=== PATIENT | female | born 1930 | race Caucasian/White ===

== ENCOUNTER 2016-11-21 08:54 | Emergency (ER) | payer MEDICARE, MEDICAID ==
[~2016-11-21] VITALS: Ht 162.6 cm; Wt 73.0 kg
[~2016-11-21 08:54] MED LIST: ESOM40CA PO; EZET10TA PO; IBUP200C5 PO; LEVO75TA11 PO
[2016-11-21 08:57] VITALS: BP 129/53
== END 2016-11-21 10:14 | disposition home or self-care (01) ==
LOC: ER 08:56
DX: S90.111A Contusion of right great toe without damage to nail, initial encounter (principal); M20.11 Hallux valgus (acquired), right foot; G89.29 Other chronic pain; K21.9 Gastro-esophageal reflux disease without esophagitis; M19.90 Unspecified osteoarthritis, unspecified site; W22.8XXA Striking against or struck by other objects, initial encounter; Y92.89 Other specified places as the place of occurrence of the external cause; Y93.89 Activity, other specified; Y99.8 Other external cause status
CPT/HCPCS: 73660; 99284; A4606; Z7610

== ENCOUNTER 2016-12-02 09:30 | Outpatient (CLI) | payer MEDICARE, MEDICAID | END 2016-12-02 23:59 | disposition home or self-care (01) | LOC: WOU 09:30 | PROVIDERS: ATTEND Podiatrist Foot & Ankle Surgery | DX: S92.414A Nondisplaced fracture of proximal phalanx of right great toe, initial encounter for closed fracture (principal); W20.8XXA Other cause of strike by thrown, projected or falling object, initial encounter; Y92.9 Unspecified place or not applicable; Z87.891 Personal history of nicotine dependence; M17.0 Bilateral primary osteoarthritis of knee | CPT/HCPCS: G0463 ==

== ENCOUNTER 2016-12-12 08:07 | Outpatient (CLI) | payer MEDICARE, MEDICAID | END 2016-12-12 23:59 | disposition home or self-care (01) | LOC: RAD 08:07 | PROVIDERS: ATTEND Podiatrist Foot & Ankle Surgery | DX: M19.071 Primary osteoarthritis, right ankle and foot (principal); M85.88 Other specified disorders of bone density and structure, other site; M21.071 Valgus deformity, not elsewhere classified, right ankle; M25.474 Effusion, right foot | CPT/HCPCS: 73630-TC ==

== ENCOUNTER 2016-12-16 08:35 | Outpatient (CLI) | payer MEDICARE, MEDICAID | END 2016-12-16 23:59 | disposition home or self-care (01) | LOC: WOU 08:35 | PROVIDERS: ATTEND Podiatrist Foot & Ankle Surgery | DX: S92.411D Displaced fracture of proximal phalanx of right great toe, subsequent encounter for fracture with routine healing (principal); W20.8XXD Other cause of strike by thrown, projected or falling object, subsequent encounter; M79.671 Pain in right foot | CPT/HCPCS: G0463 ==

== ENCOUNTER 2017-03-14 07:54 | Inpatient (IN) | payer MEDICARE, MEDICAID ==
[~2017-03-14] VITALS: Ht 152.4 cm; Wt 73.5 kg
[~2017-03-14 07:54] MED LIST changes: -EZET10TA PO; +EZET10TA14 PO
--- NOTE | 2017-03-14 08:00 | NUR ---
COUGH CONGESTION AND HEADACHE. PLACED ON MONITOR.AWAITING MD ORDER
[2017-03-14] MEDS ORDERED: IV NS 0.9% 1,000 ML BAG IV ONE (09:00)
[2017-03-14 09:35] LABS: BASOPHILS # (AUTO) 0.5 /CMM (0.0-0.2); BASOPHILS % (AUTO) 4.2 % (0.0-2.0); EOSINOPHILS # (AUTO) 0.1 /CMM (0.0-0.7); EOSINOPHILS % (AUTO) 0.6 % (0.0-6.0); HEMATOCRIT 32 % (33-45); LYMPHOCYTES # (AUTO) 0.6 /CMM (0.8-4.8); LYMPHOCYTES % (AUTO) 5.2 % (20.0-44.0); MEAN CORPUSCULAR HEMOGLOBIN 27 PG (26.0-33.0); MEAN CORPUSCULAR HGB CONC 34 g/dl (31.0-36.0); MEAN CORPUSCULAR VOLUME 78 fL (82-100); MONOCYTES # (AUTO) 1.7 /CMM (0.1-1.30); MONOCYTES % (AUTO) 14.1 % (2.0-12.0); NEUTROPHILS # (AUTO) 9.3 /CMM (1.8-8.9); NEUTROPHILS % (AUTO) 75.9 % (43.0-81.0); PLATELET COUNT (AUTO) 178 /CMM (150-450); RDW COEFFICIENT OF VARIATION 13.9 (11.5-15.0); RED BLOOD CELL COUNT(AUTO) 4.14 MIL/uL (4.0-5.2); WHITE BLOOD COUNT (AUTO) 12.2 K/uL (4.3-11.0)
[2017-03-14 09:43] LABS: CALCIUM, SERUM 8.9 mg/dL (8.5-10.1); CARBON DIOXIDE 31 mmol/L (21-32); CHLORIDE 89 mmol/L (98-107); CREATININE 0.8 mg/dL (0.6-1.3); GLUCOSE 94 mg/dL (74-106); POTASSIUM 3.2 mmol/L (3.5-5.1); SODIUM SERUM 127 mmol/L (136-145); UREA NITROGEN, BLOOD 27 mg/dL (7-18)
--- NOTE | 2017-03-14 09:46 | NUR ---
FIRE EQUIPMENT INSPECTOR HELPER AT BEDSIDE
[2017-03-14 09:51] LABS: TROPONIN I 0.064 ng/mL (0.00-0.056)
[2017-03-14 09:56] LABS: ALANINE AMINOTRANSFERASE 36 U/L (12-78); ALBUMIN 3.3 g/dL (3.4-5.0); ALKALINE PHOSPHATASE 97 U/L (46-116); ASPARTATE AMINOTRANSFERASE 29 U/L (15-37); B-TYPE NATRIURETIC PEPTIDE 449 PG/ML (0-125); BILIRUBIN,DIRECT 0.2 mg/dL (0.0-0.2); BILIRUBIN,TOTAL 0.6 mg/dL (0.2-1.0); TOTAL PROTEIN, SERUM 7.3 g/dL (6.4-8.2)
[2017-03-14] MEDS ORDERED: ASPI-1152 PO (10:48)
[2017-03-14] MEDS ORDERED: FLUT16SP NS (10:48)
[2017-03-14] MEDS ORDERED: ROSU10TA PO (10:48)
[2017-03-14] MEDS ORDERED: BACL10TA PO (10:48)
--- NOTE | 2017-03-14 10:57 | NUR ---
PREETI PEREZ [facility] .
[2017-03-14] MEDS ORDERED: ASPIRIN 325 MG TABLET PO ONE (11:00)
[2017-03-14] MEDS ORDERED: OSELTAMIVIR PHOSPHATE 75 MG CAPSULE PO ONE (11:00)
[2017-03-14] MEDS ORDERED: OSELTAMIVIR PHOSPHATE 75 MG CAPSULE ONE (11:15)
[2017-03-14] MEDS ORDERED: ASPIRIN 325 MG TABLET ONE (11:15)
--- NOTE | 2017-03-14 11:52 | NUR ---
PAGED ASSISTANT QUALITY MANAGER PANEL MATTY HAMILTON.
--- NOTE | 2017-03-14 11:57 | NUR ---
PATIENT ASSIGNED TO TELE 327
--- NOTE | 2017-03-14 12:01 | NUR ---
GAVE REPORT TO CLAUDIA PALMA TELE ROOM 327-1 DX FLU MATTY HAMILTON ADMITTING
--- NOTE | 2017-03-14 12:02 | NUR ---
RECEIVED REPORT FROM MINERVA POTTER
--- NOTE | 2017-03-14 12:15 | NUR ---
REPAGED MATTY HAMILTON.
--- NOTE | 2017-03-14 13:20 | NUR ---
PATIENT ARRIVED TO UNIT VIA A GURNEY AND PLACED IN ROOM 327-2
--- NOTE | 2017-03-14 13:25 | NUR ---
vital signs on admission are stable. BP 141/68, HR 72, RR 18, TEMP 98.3, OXYGEN ON ROOM AIR 95%
--- NOTE | 2017-03-14 13:40 | NUR ---
DR HAMILTON AT BEDSIDE. ORDERS RECEIVED
[2017-03-14] MEDS ORDERED: IBUPROFEN 600 MG TABLET PO PRN (14:00)
[2017-03-14] MEDS ORDERED: POTASSIUM CHLORIDE 20 MEQ TAB.PRT.SR PO ONE (14:00)
[2017-03-14] MEDS ORDERED: ASPIRIN/ACETAMINOPHEN/CAFFEINE 1 EACH TABLET PO PRN (14:00)
[2017-03-14] MEDS ORDERED: IV NS 0.9% 1,000 ML BAG IV PRN (14:00)
[2017-03-14] MEDS: methylPREDNISolone SOD SUCC 40 MG/ML VIAL IV SCH ×2 (14:15→16:54)
--- NOTE | 2017-03-14 15:10 | NUR ---
RT AT BEDSIDE
[2017-03-14] MEDS: IPRATROPIUM NEB FS 0.5 MG/2.5 ML AMPUL.NEB NEB SCH ×3 (15:24→23:30)
[2017-03-14] MEDS: ALBUTEROL FS 2.5 MG/0.5 ML VIAL.NEB NEB SCH ×3 (15:24→23:30)
--- NOTE | 2017-03-14 15:40 | NUR ---
RN ADMITTING NOTES PATIENT ADMITTED TO UNIT FOR INFLUENZA A. PATIENT IS ALERT AND ORIENTED TO NAME, PLACE AND TIME. NO SIGNS AND SYMPTOMS OF DISTRESS. HEADACHE PAIN 10/24. IV SITE IS INTACT AND PATENT, STARTED PATIENT ON NS 80ML/HR PER MD ORDER. PLACED ON DVT PUMP. LOW POTASSIUM REPLACED BY 40mEq KCL. BED IN LOW POSITION, LOCKED AND TWO SIDE RAILS ARE UP. CALL LIGHT WITHIN REACH FOR SAFETY. OVERBED TABLE WITHIN REACH. WILL CONTINUE TO ASSESS AND MONITOR PATIENT THROUGH OUT MY SHIFT
[2017-03-14 16:13] VITALS: BP 141/68
[2017-03-14] MEDS ORDERED: Z GUARD REMEDY 2 OZ OINT TP PRN (17:00)
[2017-03-14] MEDS ORDERED: MAG HYDROX/AL HYDROX/SIMETH 30 ML UDC PO PRN (17:00)
[2017-03-14] MEDS ORDERED: ONDANSETRON HCL/PF 4 MG/2 ML VIAL IVP PRN (17:00)
[2017-03-14] MEDS ORDERED: ACETAMINOPHEN 325 MG TABLET PO PRN (17:00)
[2017-03-14] MEDS: OSELTAMIVIR PHOSPHATE 75 MG CAPSULE PO SCH (17:19)
[2017-03-14] MEDS: BACLOFEN (10 MG) 10 MG TABLET PO SCH (17:20)
[2017-03-14] MEDS: ENOXAPARIN SODIUM 40 MG/0.4 ML DISP.SYRIN SQ SCH (17:21)
--- NOTE | 2017-03-14 18:30 | NUR ---
URINE COLLECTED. LAB NOTIFIED
--- NOTE | 2017-03-14 19:21 | NUR ---
RN CLOSING NOTES PATIENT IS ALERT AND ORIENTED TO NAME, PLACE AND TIME. NO SIGNS AND SYMPTOMS OF DISTRESS. IV SITE IS INTACT AND PATENT. LOW POTASSIUM REPLACED BY 40mEq KCL. BED IN LOW POSITION, LOCKED AND TWO SIDE RAILS ARE UP. CALL LIGHT WITHIN REACH FOR SAFETY. OVERBED TABLE WITHIN REACH. WILL ENDORSE TO THREE DIMENSIONAL MAP MODELER NURSE
[2017-03-14 20:00] VITALS: BP 139/49
--- NOTE | 2017-03-14 20:00 | NUR ---
RN NOTES RECEIVED PATIENT IN BED, ALERT AND ORIENTED X3, CALM, ABLE TO VERBALIZE NEEDS, TOLERATING ROOM AIR, SPO2 96%, DENIES ANY PAIN, NO HEADACHE, RECEIVED EXCEDRIN FROM PREVIOUS SHIFT, LEFT FA PERIPHERAL LINE IS PATENT AND INFUSING WELL. KEPT SAFE AND COMFORTABLE, CALL LIGHT WITHIN REACH.
[2017-03-14 21:21] LABS: APPEARANCE,URINE CLEAR (CLEAR); BILIRUBIN,URINE NEGATIVE (NEGATIVE); BLOOD, URINE NEGATIVE Ery/uL (NEGATIVE); COLOR,URINE YELLOW (YELLOW); KETONES,URINE NEGATIVE (NEGATIVE); LEUKOCYTE ESTERASE ,URINE NEGATIVE (NEGATIVE); NITRITE, URINE NEGATIVE (NEGATIVE); PROTEIN,URINE NEGATIVE (NEGATIVE); UGLUCOSE NEGATIVE (NEGATIVE); UROBILINOGEN,URINE 0.2 EU/dL (0.2)
[2017-03-14] MEDS: ATORVASTATIN 40 MG TABLET PO SCH (22:13)
[2017-03-14] MEDS: Z GUARD REMEDY 2 OZ OINT TP SCH (22:15)
[2017-03-15] VITALS: BP 125/59
[2017-03-15] MEDS: IV NS 0.9% 1,000 ML IV PRN ×2 (01:49→17:46)
[2017-03-15] MEDS: IPRATROPIUM NEB FS 0.5 MG/2.5 ML AMPUL.NEB NEB SCH ×6 (03:44→23:27)
[2017-03-15] MEDS: ALBUTEROL FS 2.5 MG/0.5 ML VIAL.NEB NEB SCH ×6 (03:44→23:28)
[2017-03-15 04:00] VITALS: BP 133/80
--- NOTE | 2017-03-15 06:35 | NUR ---
RN NOTES PATIENT IS ALERT AND AWAKE, NO SOB, NO COMPLAIN OF HEADACHE, SPO2 AT ROOM AIR REMAINED AT 96%, NO ADVERSE CHANGE OF CONDITION DURING SHIFT, ISOLATION SECONDARY TO FLU IN PLACE. ALL NEEDS ATTENDED, SLEPT FOR 5 HOURS, CALL LIGHT WITHIN REACH.
[2017-03-15 06:56] VITALS: BP 139/75
--- NOTE | 2017-03-15 07:22 | NUR ---
RN OPEN NOTES RECEIVED REPORT FROM STEAMING MACHINE OPERATOR NURSE. PATIENT IS IN BED, ALERT AND ORIENTED TO NAME, PLACE AND TIME. NO SIGNS AND SYMPTOMS OF DISTRESS. DENIED PAIN. BED IN LOW POSITION, LOCKED AND TWO SIDE RAILS ARE UP. CALL LIGHT WITHIN REACH FOR SAFETY. WILL CONTINUE TO MONITOR AND ASSESS PATIENT THROUGH OUT MY SHIFT
--- NOTE | 2017-03-15 08:15 | NUR ---
PHARMACY NOTIFIED TO DELIVER Z GUARD AND FLONASE
[2017-03-15] MEDS: LEVOTHYROXINE SODIUM 75 MCG TABLET PO SCH (08:26)
[2017-03-15] MEDS: ASPIRIN EC 81 MG TABLET.DR PO SCH (08:26)
[2017-03-15] MEDS: OSELTAMIVIR PHOSPHATE 75 MG CAPSULE PO SCH ×2 (08:26→17:46)
[2017-03-15] MEDS: methylPREDNISolone SOD SUCC 40 MG/ML VIAL IV SCH ×3 (08:27→17:46)
[2017-03-15] MEDS ORDERED: ASPIRIN EC 81 MG TABLET.DR PO SCH (09:00)
[2017-03-15] MEDS: FLUTICASONE PROPIONATE 16 GM BOTTLE NS SCH (09:00)
[2017-03-15] MEDS: Z GUARD REMEDY 2 OZ OINT TP SCH ×2 (09:00→21:04)
[2017-03-15 09:09] LABS: BASOPHILS % (AUTO) 0.2 % (0.0-2.0); EOSINOPHILS % (AUTO) 0.5 % (0.0-6.0); HEMATOCRIT 31 % (33-45); HEMOGLOBIN 10.3 g/dL (11.5-14.8); LYMPHOCYTES # (AUTO) 0.4 /CMM (0.8-4.8); LYMPHOCYTES % (AUTO) 6.9 % (20.0-44.0); MEAN CORPUSCULAR HEMOGLOBIN 27 PG (26.0-33.0); MEAN CORPUSCULAR HGB CONC 34 g/dl (31.0-36.0); MEAN CORPUSCULAR VOLUME 79 fL (82-100); MONOCYTES # (AUTO) 1.2 /CMM (0.1-1.30); MONOCYTES % (AUTO) 20.6 % (2.0-12.0); NEUTROPHILS # (AUTO) 4.3 /CMM (1.8-8.9); NEUTROPHILS % (AUTO) 71.8 % (43.0-81.0); PLATELET COUNT (AUTO) 157 /CMM (150-450); RED BLOOD CELL COUNT(AUTO) 3.84 MIL/uL (4.0-5.2); WHITE BLOOD COUNT (AUTO) 5.9 K/uL (4.3-11.0)
[2017-03-15 09:40] LABS: ALANINE AMINOTRANSFERASE 40 U/L (12-78); ALBUMIN 2.8 g/dL (3.4-5.0); ALKALINE PHOSPHATASE 90 U/L (46-116); ASPARTATE AMINOTRANSFERASE 32 U/L (15-37); BILIRUBIN,TOTAL 0.4 mg/dL (0.2-1.0); CALCIUM, SERUM 8.7 mg/dL (8.5-10.1); CARBON DIOXIDE 29 mmol/L (21-32); CHLORIDE 100 mmol/L (98-107); CREATININE 0.7 mg/dL (0.6-1.3); GLUCOSE 120 mg/dL (74-106); MAGNESIUM 1.7 mg/dL (1.8-2.4); PHOSPHORUS 3.3 mg/dL (2.5-4.9); POTASSIUM 3.3 mmol/L (3.5-5.1); SODIUM SERUM 137 mmol/L (136-145); TOTAL PROTEIN, SERUM 6.2 g/dL (6.4-8.2); UREA NITROGEN, BLOOD 16 mg/dL (7-18)
[2017-03-15 10:58] LABS: CHOLESTEROL 131 mg/dL (<200); HDL CHOLESTEROL 92 mg/dL (40-60); LDL 42 mg/dL (0-99); THYROID STIMULATING HORMONE 0.201 uIU/mL (0.358-3.74); TRIGLYCERIDES 19 mg/dL (30-150)
[2017-03-15 11:13] LABS: LYMPHOCYTES % (MANUAL) 4 % (16-48); MONOCYTES % (MANUAL) 11 % (0-11.0); NEUTROPHILS % (MANUAL) 85 (42-76)
[2017-03-15 11:21] LABS: IRON, SERUM 25 ug/dl (50-175); TOTAL IRON BINDING CAPACITY 226 ug/dl (250-450)
[2017-03-15] MEDS ORDERED: Magnesium 1 GM/2 ML VIAL IV ONE (12:00)
[2017-03-15] MEDS: Magnesium 1GM/D5W 100ML PREMIX 100 ML IV SCH ×2 (12:01→13:26)
[2017-03-15] MEDS ORDERED: POTASSIUM CHLORIDE 20 MEQ TAB.PRT.SR PO ONE (13:00)
[2017-03-15 16:00] VITALS: BP 132/50
[2017-03-15] MEDS: BACLOFEN (10 MG) 10 MG TABLET PO SCH (17:46)
[2017-03-15] MEDS: ENOXAPARIN SODIUM 40 MG/0.4 ML DISP.SYRIN SQ SCH (17:47)
--- NOTE | 2017-03-15 19:25 | NUR ---
MS RN NOTES A/O X 3, IN BED RESTING COMFORTABLY IN STABLE CONDITION, NO S/S OF DISTRESS. SAFETY MEASURES ARE IN PLACE, CALL LIGHT IS IN REACH. WILL CONTINUE TO MONITOR.
--- NOTE | 2017-03-15 19:30 | NUR ---
RN CLOSING NOTES GAVE REPORT TO BUSINESS EXCELLENCE MANAGER NURSE. ALL PATIENT NEEDS ANTICIPATED AND ATTENDED. NO SIGNS AND SYMPTOMS OF DISTRESS. BED IN LOW POSITION, LOCKED AND TWO SIDE RAILS ARE UP. CALL LIGHT WITHIN REACH FOR SAFETY.
[2017-03-15 20:00] VITALS: BP 131/57
[2017-03-15] MEDS: ATORVASTATIN 40 MG TABLET PO SCH (21:05)
[2017-03-16] MEDS: ALBUTEROL FS 2.5 MG/0.5 ML VIAL.NEB NEB SCH ×3 (03:30→12:27)
--- NOTE | 2017-03-16 06:22 | NUR ---
MS RN CLOSING NOTES ASLEEP AND EASILY AWAKEN, TOLERATING ROOM AIR 98%. STABLE CONDITION. NOT IN S/S OF DISTRESS. RESPIRATIONS EVEN AND UNLABORED. ALL NURSING CARE RENDERED. NEEDS ATTENDED AND ANTICIPATED, KEPT CLEAN AND DRY AND COMFORTABLE, GOOD SKIN CARE PROVIDED. ON LOW BED AT ALL TIMES TO ENSURE SAFETY. SAFE HAZARD FREE ENVIRONMENT PROVIDED. CALL LIGHT WITHIN EASY TO REACH. WILL ENDORSE NEXT SHIFT CONTINUITY OF CARE
--- NOTE | 2017-03-16 07:30 | NUR ---
RN OPEN NOTES RECEIVED REPORT FROM MATHEMATICAL ENGINEERING TECHNICIAN NURSE. PATIENT IS IN BED WITH HER EYES CLOSED, EASILY AROUSED TO CALLING HER NAME AND LIGHT TOUCH. BED IN LOW POSITION, LOCKED AND TWO SIDE RAILS ARE UP. CALL LIGHT WITHIN REACH FOR SAFETY. NO SIGNS AND SYMPTOMS OF DISTRESS. BREATHING IS UNLABORED AND EVEN BILATERALLY. WILL CONTINUE TO MONITOR AND ASSESS PATIENT THROUGH OUT MY SHIFT
[2017-03-16 08:00] VITALS: BP 131/72
[2017-03-16] MEDS: LEVOTHYROXINE SODIUM 75 MCG TABLET PO SCH (08:45)
[2017-03-16] MEDS: methylPREDNISolone SOD SUCC 40 MG/ML VIAL IV SCH ×2 (08:45→12:31)
[2017-03-16] MEDS: OSELTAMIVIR PHOSPHATE 75 MG CAPSULE PO SCH ×2 (08:45→15:57)
[2017-03-16] MEDS: ASPIRIN EC 81 MG TABLET.DR PO SCH (08:45)
[2017-03-16] MEDS: Z GUARD REMEDY 2 OZ OINT TP SCH (08:46)
[2017-03-16] MEDS: FLUTICASONE PROPIONATE 16 GM BOTTLE NS SCH (08:47)
[2017-03-16 09:12] LABS: BASOPHILS % (AUTO) 0.1 % (0.0-2.0); EOSINOPHILS % (AUTO) 0.1 % (0.0-6.0); HEMATOCRIT 31 % (33-45); HEMOGLOBIN 10.4 g/dL (11.5-14.8); LYMPHOCYTES # (AUTO) 0.6 /CMM (0.8-4.8); LYMPHOCYTES % (AUTO) 5.9 % (20.0-44.0); MEAN CORPUSCULAR HEMOGLOBIN 27 PG (26.0-33.0); MEAN CORPUSCULAR HGB CONC 34 g/dl (31.0-36.0); MEAN CORPUSCULAR VOLUME 79 fL (82-100); MONOCYTES % (AUTO) 9.4 % (2.0-12.0); NEUTROPHILS # (AUTO) 9.4 /CMM (1.8-8.9); NEUTROPHILS % (AUTO) 84.5 % (43.0-81.0); PLATELET COUNT (AUTO) 169 /CMM (150-450); RED BLOOD CELL COUNT(AUTO) 3.84 MIL/uL (4.0-5.2)
[2017-03-16 09:16] LABS: CALCIUM, SERUM 8.7 mg/dL (8.5-10.1); CARBON DIOXIDE 27 mmol/L (21-32); CHLORIDE 100 mmol/L (98-107); CREATININE 0.8 mg/dL (0.6-1.3); GLUCOSE 109 mg/dL (74-106); MAGNESIUM 1.9 mg/dL (1.8-2.4); PHOSPHORUS 3.1 mg/dL (2.5-4.9); POTASSIUM 3.8 mmol/L (3.5-5.1); SODIUM SERUM 134 mmol/L (136-145); UREA NITROGEN, BLOOD 18 mg/dL (7-18)
[2017-03-16] MEDS: IPRATROPIUM NEB FS 0.5 MG/2.5 ML AMPUL.NEB NEB SCH ×3 (10:16→12:27)
--- NOTE | 2017-03-16 12:15 | NUR ---
PHOTO OPTICS TECHNICIAN NOTES PATIENT DISCHARGE ORDER RECEIVED AND CARRIED OUT. PATIENT IS BEING DISCHARGE HOME. NO SIGNS AND SYMPTOMS OF DISTRESS. NO FEVER. DENIED PAIN. ALL DISCHARGE INSTRUCTIONS EXPLAINED TO PATIENT AND PATIENT VERBALIZED UNDERSTANDING. ALL BELONGING LIST WITH PATIENT AT TIME OF DISCHARGE. PATIENT SIGNED BOTH DISCHARGE PAPERS AND BELONGING LIST FORM; FORMS PLACED IN THE CHART. NO NEW PRESCRIPTION. SKIN IS INTACT, NO NEED FOR PICTURES. IV SITE REMOVED. ID BAND REMOVED. PATIENT PICKED UP BY HER DAUGHTER IN A PRIVATE CAR. PATIENT ESCORTED TO MAIN LOBBY WITH A LARRIMAN HELPER AND A WHEELCHAIR. Addendum: 03/16/17 at 1321 by BERRY JUNIOR RN DISREGARD NOTE. WRONG PATIENT DOCUMENTATION
--- NOTE | 2017-03-16 16:06 | NUR ---
CUSTOMER CARE SPECIALIST NOTES - CORRECT DISCHARGE NOTES PATIENT DISCHARGE ORDER RECEIVED AND CARRIED OUT. PATIENT IS BEING DISCHARGE HOME. NO SIGNS AND SYMPTOMS OF DISTRESS. DENIED PAIN. ALL DISCHARGE INSTRUCTIONS EXPLAINED TO PATIENT AND PATIENT VERBALIZED UNDERSTANDING. ALL BELONGING LIST WITH PATIENT AT TIME OF DISCHARGE. PATIENT SIGNED BOTH DISCHARGE PAPERS AND BELONGING LIST FORM; FORMS PLACED IN THE CHART. NO NEW PRESCRIPTION. PICTURES WERE TAKEN AND PLACED IN THE CHART. IV SITE REMOVED. ID BAND REMOVED. PATIENT PICKED UP BY HER CAREGIVER IN A PRIVATE CAR. PATIENT ESCORTED TO MAIN LOBBY WITH A RAILS DEVELOPER AND A WHEELCHAIR.
== END 2017-03-16 16:06 | disposition home or self-care (01) | DRG 193 ==
LOC: ER 07:57 → MED 11:59 → TELE 17:34 → MED 03-15 08:46
PROVIDERS: ADMIT Nurse Practitioner Acute Care; ATTEND Nurse Practitioner Acute Care
DX: J09.X2 Influenza due to identified novel influenza A virus with other respiratory manifestations (principal); I21.A1 Myocardial infarction type 2; N17.0 Acute kidney failure with tubular necrosis; E87.1 Hypo-osmolality and hyponatremia; E86.0 Dehydration; D50.9 Iron deficiency anemia, unspecified; K21.9 Gastro-esophageal reflux disease without esophagitis; M19.90 Unspecified osteoarthritis, unspecified site; Z79.899 Other long term (current) drug therapy; Z79.82 Long term (current) use of aspirin; E87.6 Hypokalemia; E03.9 Hypothyroidism, unspecified
CPT/HCPCS: 36415; 71010-TC; 80048-TC; 80053-TC; 80061-TC; 80076-TC; 81000-TC; 83540-TC; 83605-TC; 83735-TC; 83880; 84100-TC; 84443-TC; 84484-TC; 85025-TC; 87040-TC; 87081-TC; 87400; 93307-TC; A4606; J1650; J2920; J3475; J7030; Z7610

== ENCOUNTER 2017-08-26 19:48 | Emergency (ER) | payer MEDICARE, MEDICAID ==
[~2017-08-26] VITALS: Ht 165.1 cm; Wt 71.7 kg
[~2017-08-26 19:48] MED LIST changes: +ASPI-1152 PO; +BACL10TA PO; -EZET10TA14 PO; +FLUT16SP NS; -IBUP200C5 PO; +ROSU10TA PO
[2017-08-26 20:09] VITALS: BP 154/65
[2017-08-26 21:03] LABS: APPEARANCE,URINE Cloudy (CLEAR); BILIRUBIN,URINE Negative (NEGATIVE); BLOOD, URINE Large Ery/uL (NEGATIVE); COLOR,URINE Yellow (YELLOW); KETONES,URINE Negative (NEGATIVE); LEUKOCYTE ESTERASE ,URINE Moderate (NEGATIVE); NITRITE, URINE Negative (NEGATIVE); PROTEIN,URINE 30 mg/dl (NEGATIVE); UGLUCOSE Negative (NEGATIVE); UROBILINOGEN,URINE 0.2 EU/dL (0.2)
[2017-08-26 21:35] LABS: RBC,URINE 21-50 /HPF (0-2)
[2017-08-26 21:36] LABS: BACTERIA,URINE 2+ /HPF (None Seen); SQUAMOUS EPITHELIAL CELL,UR Few /HPF (None Seen)
== END 2017-08-26 21:34 | disposition home or self-care (01) ==
LOC: ER 19:51
DX: N39.0 Urinary tract infection, site not specified (principal); K21.9 Gastro-esophageal reflux disease without esophagitis; M19.90 Unspecified osteoarthritis, unspecified site; Z79.82 Long term (current) use of aspirin
CPT/HCPCS: 81000-TC; 87086-TC; 87186-TC; A4606; Z7610

== ENCOUNTER 2017-12-01 07:37 | Emergency (ER) | payer MEDICARE, MEDICAID ==
[~2017-12-01] VITALS: Ht 152.4 cm; Wt 74.8 kg
--- NOTE | 2017-12-01 08:05 | NUR ---
PATIENT TO ED DT DYSURIA AND FREQUENCY SINCE LAST NIGHT. PT NOT IN DISTRESS. SKIN IS WARM TO TOUCH AND NON DIAPHORETIC. PATIENT IS AFEBRILE. VSS.
[2017-12-01 08:19] LABS: APPEARANCE,URINE Clear (CLEAR); BILIRUBIN,URINE Negative (NEGATIVE); BLOOD, URINE Negative Ery/uL (NEGATIVE); COLOR,URINE Yellow (YELLOW); KETONES,URINE Negative (NEGATIVE); LEUKOCYTE ESTERASE ,URINE Negative (NEGATIVE); NITRITE, URINE Negative (NEGATIVE); PROTEIN,URINE Negative (NEGATIVE); UGLUCOSE Negative (NEGATIVE); UROBILINOGEN,URINE 0.2 EU/dL (0.2)
--- NOTE | 2017-12-01 08:33 | NUR ---
DR Katja ARCEO PAGED AT [phone]
--- NOTE | 2017-12-01 08:35 | NUR ---
Patient discharged to home in stable condition. Written and verbal after care instructions given. Patient verbalizes understanding of instruction.
[2017-12-01 08:38] VITALS: BP 150/62
--- NOTE | 2017-12-01 08:42 | NUR ---
DR DOMINGUEZ ,ON-CALL PAGED
== END 2017-12-01 08:40 | disposition home or self-care (01) ==
LOC: ER 07:40
DX: R30.0 Dysuria (principal); E78.00 Pure hypercholesterolemia, unspecified; K21.9 Gastro-esophageal reflux disease without esophagitis; Z60.2 Problems related to living alone; Z79.82 Long term (current) use of aspirin
CPT/HCPCS: 81000-TC; 87086-TC; 87186-TC; A4606; Z7610

== ENCOUNTER 2018-03-13 08:34 | Emergency (ER) | END 2018-03-13 11:23 | disposition home or self-care (01) | DX: M54.6 Pain in thoracic spine (principal); R10.13 Epigastric pain; E78.00 Pure hypercholesterolemia, unspecified; K21.9 Gastro-esophageal reflux disease without esophagitis; R94.31 Abnormal electrocardiogram [ECG] [EKG]; Z60.2 Problems related to living alone; Z79.82 Long term (current) use of aspirin ==

== ENCOUNTER 2018-03-13 13:20 | Inpatient (IN) | END 2018-03-14 13:00 | disposition home or self-care (01) | DRG 206 | DX: M94.0 Chondrocostal junction syndrome [Tietze] (principal); E44.0 Moderate protein-calorie malnutrition; E66.9 Obesity, unspecified; E03.9 Hypothyroidism, unspecified; E78.5 Hyperlipidemia, unspecified; E83.42 Hypomagnesemia; I10 Essential (primary) hypertension; K21.9 Gastro-esophageal reflux disease without esophagitis; M19.90 Unspecified osteoarthritis, unspecified site; M62.50 Muscle wasting and atrophy, not elsewhere classified, unspecified site; Z68.32 Body mass index [BMI] 32.0-32.9, adult; I35.1 Nonrheumatic aortic (valve) insufficiency ==

== ENCOUNTER 2018-03-16 11:46 | Emergency (ER) | payer MEDICARE, MEDICAID ==
[~2018-03-16] VITALS: Ht 152.4 cm; Wt 59.9 kg
[~2018-03-16 11:46] MED LIST changes: +CHOL100044 PO; -FLUT16SP NS; +MELO-105 PO; -ROSU10TA PO; +ROSU10TA2 PO
--- NOTE | 2018-03-16 12:01 | NUR ---
BIB BY CAREGIVER 87 YEAR OLD FEMALE C/O Intermittent L sided chest discomfort since last night, ALERT AND ORIENTED X4 BREAHTING EVEN AND UNALBORED WITH NO DISTRESS NOTED. SKIN WARM TO TOUCH AND INTACT. AWAITNG TO BE SEEN BY .
[2018-03-16] MEDS ORDERED: MAG HYDROX/AL HYDROX/SIMETH 30 ML UDC ONE (12:10)
[2018-03-16] MEDS ORDERED: FAMOTIDINE/PF INJ 20 MG/2 ML VIAL IV ONE ×2 (12:11→12:30)
[2018-03-16 12:27] LABS: BASOPHILS # (AUTO) 0.1 /CMM (0.0-0.2); BASOPHILS % (AUTO) 0.6 % (0.0-2.0); EOSINOPHILS % (AUTO) 1.7 % (0.0-6.0); HEMATOCRIT 33 % (33-45); HEMOGLOBIN 10.7 g/dL (11.5-14.8); LYMPHOCYTES # (AUTO) 1.6 /CMM (0.8-4.8); LYMPHOCYTES % (AUTO) 19.9 % (20.0-44.0); MEAN CORPUSCULAR HGB CONC 32 g/dl (31.0-36.0); MEAN CORPUSCULAR VOLUME 83 fL (82-100); MONOCYTES # (AUTO) 0.9 /CMM (0.1-1.30); MONOCYTES % (AUTO) 11.6 % (2.0-12.0); NEUTROPHILS # (AUTO) 5.4 /CMM (1.8-8.9); NEUTROPHILS % (AUTO) 66.2 % (43.0-81.0); PLATELET COUNT (AUTO) 163 /CMM (150-450); WHITE BLOOD COUNT (AUTO) 8.2 K/uL (4.3-11.0)
[2018-03-16] MEDS ORDERED: MAG HYDROX/AL HYDROX/SIMETH 30 ML UDC PO ONE (12:30)
[2018-03-16 12:36] LABS: CALCIUM, SERUM 8.8 mg/dL (8.5-10.1); CARBON DIOXIDE 28 mmol/L (21-32); CHLORIDE 93 mmol/L (98-107); CREATININE 0.7 mg/dL (0.6-1.3); GLUCOSE 99 mg/dL (74-106); POTASSIUM 3.8 mmol/L (3.5-5.1); SODIUM SERUM 128 mmol/L (136-145); UREA NITROGEN, BLOOD 23 mg/dL (7-18)
[2018-03-16 12:42] LABS: ALANINE AMINOTRANSFERASE 24 U/L (12-78); ALBUMIN 3.4 g/dL (3.4-5.0); ALKALINE PHOSPHATASE 107 U/L (46-116); ASPARTATE AMINOTRANSFERASE 29 U/L (15-37); BILIRUBIN,DIRECT 0.3 mg/dL (0.0-0.2); BILIRUBIN,TOTAL 0.7 mg/dL (0.2-1.0); LIPASE 154 U/L (73-393); TOTAL PROTEIN, SERUM 6.8 g/dL (6.4-8.2)
[2018-03-16] MEDS ORDERED: IV NS 0.9% 250 ML IV ONE (12:46)
[2018-03-16] MEDS ORDERED: IOHEXOL-350 100 ML VIAL IV ONE (12:46)
[2018-03-16] MEDS ORDERED: CT SWABBABLE VALVE TRANS SET 1 EA INFUS.SET MC ONE (12:46)
--- NOTE | 2018-03-16 12:50 | NUR ---
SECURITY PROFESSIONAL AT BEDSIDE TO TAKE PATIENT FOR CT
--- NOTE | 2018-03-16 13:29 | NUR ---
Patient discharged to home in stable condition. Written and verbal after care instructions given. Patient verbalizes understanding of instruction. IV removed. Catheter intact and site benign. Pressure and 4x4 applied to site. No bleeding noted.
[2018-03-16 13:32] VITALS: BP 118/66
== END 2018-03-16 13:33 | disposition home or self-care (01) ==
LOC: ER 11:56
DX: K30 Functional dyspepsia (principal); E87.1 Hypo-osmolality and hyponatremia; E78.00 Pure hypercholesterolemia, unspecified; K21.9 Gastro-esophageal reflux disease without esophagitis; Z60.2 Problems related to living alone; Z79.82 Long term (current) use of aspirin
CPT/HCPCS: 36415; 80048-TC; 80076-TC; 83690-TC; 84484-TC; 85025-TC; 85730-TC; J3490; J7050; Q9967